=== PATIENT | male | born 1965 | race Caucasian/White ===

== ENCOUNTER 2021-03-16 05:04 | Day surgery (SDC) | payer BC ==
[2021-03-15 10:11] VITALS: BMI 24.5
[2021-03-16 10:19] LABS: INR 1.11 (0.83-1.09); PROTHROMBIN TIME (PATIENT) 12.4 SEC (9.7-13.0)
[2021-03-16 11:14] LABS: BASO % 0.6 % (0-2.0); EOS % 1.6 % (0-4.5); HEMATOCRIT 36.7 % (35.4-49); HEMOGLOBIN 12.5 GM/dL (11.7-16.9); LYMPH % 11.5 % (8-40); MCH 31.7 pg (25.7-33.7); MCHC 34.2 g/dl (32.0-35.9); MEAN CELL VOLUME 92.8 fl (80-96); MEAN PLT VOLUME 7.5 fl (7.5-11.1); MONO % 8.6 % (3.8-10.2); NEUT % 77.7 % (42.8-82.8); PLATELET COUNT 261 10^3/uL (134-434); RBC 3.95 M/mm3 (4.00-5.60); RDW 15.8 % (11.9-15.9); WHITE BLOOD COUNT 5.7 K/mm3 (4.0-10.0)
[2021-03-16 15:18] VITALS: BP 128/78; PULSE 78; TEMP 97
== END 2021-03-16 14:25 | disposition home or self-care (01) ==
LOC: JRADIR 05:04
PROVIDERS: ATTEND Internal Medicine Hematology & Oncology
PROC: 07DH3ZX Extraction of Right Inguinal Lymphatic, Percutaneous Approach, Diagnostic (ICD-10-PCS; principal; 2021-03-16)
DX: R59.0 Localized enlarged lymph nodes (principal)
CPT/HCPCS: 10005; 36415; 38505; 76942-TC; 85025; 85610; 88305-TC

== ENCOUNTER 2021-04-08 17:28 | Inpatient (IN) | payer BC ==
[2021-04-08 17:41] VITALS: BMI 23.6
[2021-04-08 20:59] LABS: BASO % 0.3 % (0-2.0); EOS % 0.5 % (0-4.5); HEMOGLOBIN 11.4 GM/dL (11.7-16.9); LYMPH % 12.8 % (8-40); MCH 30.4 pg (25.7-33.7); MCHC 33.5 g/dl (32.0-35.9); MEAN CELL VOLUME 90.7 fl (80-96); MONO % 8.6 % (3.8-10.2); NEUT % 77.8 % (42.8-82.8); PLATELET COUNT 327 10^3/uL (134-434); RBC 3.75 M/mm3 (4.00-5.60); RDW 15.2 % (11.9-15.9); WHITE BLOOD COUNT 5.9 K/mm3 (4.0-10.0)
[2021-04-09 03:04] LABS: CALCIUM 8.4 mg/dL (8.5-10.1)
[2021-04-09 03:05] LABS: BLOOD UREA NITROGEN 9.3 mg/dL (7-18)
[2021-04-09 03:07] LABS: CREATININE 0.9 mg/dL (0.55-1.3)
[2021-04-09 03:09] LABS: BILIRUBIN,TOTAL 0.3 mg/dL (0.2-1)
[2021-04-09] MEDS ORDERED: KCL 10 MEQ IVPB 10 MEQ/100 ML INFUS.BAG IVPB ONE ×2 (03:52→07:38)
[2021-04-09] MEDS: KCL 10 MEQ IVPB 10 MEQ/100 ML INFUS.BAG IVPB SCH ×3 (04:22→08:24)
[2021-04-09 06:43] LABS: PH,URINE 6.5 (5.0-8.0); URINE APPEARANCE CLEAR; URINE BILIRUBIN NEGATIVE (NEGATIVE); URINE COLOR YELLOW; URINE GLUCOSE (UA) NEGATIVE (NEGATIVE); URINE KETONE 1+ (NEGATIVE); URINE LEUK ESTERASE NEGATIVE (NEGATIVE); URINE NITRITE NEGATIVE (NEGATIVE); URINE PROTEIN NEGATIVE (NEGATIVE); URINE UROBILINOGEN 0.2 mg/dL (0.2-1.0)
[2021-04-09 09:05] LABS: BASO % 0.4 % (0-2.0); EOS % 0.4 % (0-4.5); HEMATOCRIT 36.3 % (35.4-49); HEMOGLOBIN 12.1 GM/dL (11.7-16.9); LYMPH % 10.6 % (8-40); MCH 30.3 pg (25.7-33.7); MCHC 33.4 g/dl (32.0-35.9); MEAN CELL VOLUME 90.9 fl (80-96); MEAN PLT VOLUME 7.1 fl (7.5-11.1); MONO % 7.1 % (3.8-10.2); NEUT % 81.5 % (42.8-82.8); PLATELET COUNT 310 10^3/uL (134-434); RDW 15.5 % (11.9-15.9); WHITE BLOOD COUNT 4.6 K/mm3 (4.0-10.0)
[2021-04-09 09:28] LABS: PHOSPHOROUS 3.3 mg/dL (2.5-4.9)
[2021-04-09] MEDS: ENOXAPARIN NA (PORCINE) 40 MG/0.4 ML DISP.SYRIN SQ SCH (12:23)
[2021-04-09] MEDS: D5-LR+20 MEQ KCL - 20 MEQ/1,000 ML INFUS.BAG IV SCH ×2 (12:54→23:44)
[2021-04-09] MEDS: POLYETHYLENE GLYCOL (HEALTHYLAX) 3350 17 GM PACKET PO SCH (21:21)
[2021-04-10 09:21] LABS: BASO % 0.5 % (0-2.0); EOS % 2.6 % (0-4.5); HEMATOCRIT 36.7 % (35.4-49); HEMOGLOBIN 12.6 GM/dL (11.7-16.9); LYMPH % 15.1 % (8-40); MCH 31.3 pg (25.7-33.7); MCHC 34.5 g/dl (32.0-35.9); MEAN CELL VOLUME 90.7 fl (80-96); MEAN PLT VOLUME 7.2 fl (7.5-11.1); MONO % 10.4 % (3.8-10.2); NEUT % 71.4 % (42.8-82.8); PLATELET COUNT 300 10^3/uL (134-434); RBC 4.04 M/mm3 (4.00-5.60); RDW 15.3 % (11.9-15.9); WHITE BLOOD COUNT 3.2 K/mm3 (4.0-10.0)
[2021-04-10 09:55] LABS: ALBUMIN 2.8 g/dl (3.4-5.0); PHOSPHOROUS 3.5 mg/dL (2.5-4.9)
[2021-04-10 09:56] LABS: BILIRUBIN,TOTAL 0.3 mg/dL (0.2-1); BLOOD UREA NITROGEN 6.9 mg/dL (7-18); CALCIUM 8.1 mg/dL (8.5-10.1); TOT PROT 6.6 g/dl (6.4-8.2)
[2021-04-10 09:57] LABS: CREATININE 0.8 mg/dL (0.55-1.3)
[2021-04-10] MEDS: LISINOPRIL 20 MG TABLET PO SCH (10:46)
[2021-04-10] MEDS: amLODIPine BESYLATE 10 MG TABLET (FP) PO SCH (10:46)
[2021-04-10] MEDS: ENOXAPARIN NA (PORCINE) 40 MG/0.4 ML DISP.SYRIN SQ SCH (10:47)
[2021-04-10] MEDS: POLYETHYLENE GLYCOL (HEALTHYLAX) 3350 17 GM PACKET PO SCH ×2 (10:47→22:23)
[2021-04-10] MEDS: D5-LR+20 MEQ KCL - 20 MEQ/1,000 ML INFUS.BAG IV SCH ×2 (10:47→17:14)
[2021-04-11] MEDS ORDERED: SIMETHICONE 80 MG TAB.CHEW (FP) PO ONE (01:03)
[2021-04-11] MEDS: D5-LR+20 MEQ KCL - 20 MEQ/1,000 ML INFUS.BAG IV SCH ×2 (04:09→13:18)
[2021-04-11] MEDS: amLODIPine BESYLATE 10 MG TABLET (FP) PO SCH (10:48)
[2021-04-11] MEDS: POLYETHYLENE GLYCOL (HEALTHYLAX) 3350 17 GM PACKET PO SCH ×2 (10:48→22:03)
[2021-04-11] MEDS: ENOXAPARIN NA (PORCINE) 40 MG/0.4 ML DISP.SYRIN SQ SCH (10:48)
[2021-04-11] MEDS: LISINOPRIL 20 MG TABLET PO SCH (10:48)
[2021-04-12] MEDS: D5-LR+20 MEQ KCL - 20 MEQ/1,000 ML INFUS.BAG IV SCH ×2 (00:36→16:49)
[2021-04-12 08:50] LABS: BASO % 0.5 % (0-2.0); EOS % 1.7 % (0-4.5); HEMATOCRIT 40.9 % (35.4-49); HEMOGLOBIN 13.3 GM/dL (11.7-16.9); LYMPH % 15.6 % (8-40); MCH 30.1 pg (25.7-33.7); MCHC 32.7 g/dl (32.0-35.9); MEAN CELL VOLUME 92.2 fl (80-96); MEAN PLT VOLUME 7.5 fl (7.5-11.1); MONO % 7.2 % (3.8-10.2); PLATELET COUNT 340 10^3/uL (134-434); RBC 4.43 M/mm3 (4.00-5.60); RDW 15.7 % (11.9-15.9); WHITE BLOOD COUNT 4.4 K/mm3 (4.0-10.0)
[2021-04-12] MEDS: LISINOPRIL 20 MG TABLET PO SCH (09:06)
[2021-04-12] MEDS: ENOXAPARIN NA (PORCINE) 40 MG/0.4 ML DISP.SYRIN SQ SCH (09:06)
[2021-04-12] MEDS: POLYETHYLENE GLYCOL (HEALTHYLAX) 3350 17 GM PACKET PO SCH (09:06)
[2021-04-12] MEDS: amLODIPine BESYLATE 10 MG TABLET (FP) PO SCH (09:06)
[2021-04-12 09:20] LABS: CALCIUM 8.6 mg/dL (8.5-10.1)
[2021-04-12 09:21] LABS: BLOOD UREA NITROGEN 7.2 mg/dL (7-18)
[2021-04-12 09:24] LABS: CREATININE 0.8 mg/dL (0.55-1.3)
[2021-04-12 14:25] VITALS: BP 132/74; PULSE 76; TEMP 98.7
[2021-04-12] MEDS ORDERED: FOLIC ACID 1 MG TABLET (FP) PO SCH (15:30)
== END 2021-04-12 18:13 | disposition home or self-care (01) | DRG 389 ==
LOC: SUPCPDRO 17:28 → JER 17:28 → JERBED 22:52 → J7W 04-09 08:42
PROVIDERS: ADMIT Internal Medicine; ATTEND Internal Medicine
DX: K56.600 Partial intestinal obstruction, unspecified as to cause (principal); C85.90 Non-Hodgkin lymphoma, unspecified, unspecified site; K21.9 Gastro-esophageal reflux disease without esophagitis; M06.9 Rheumatoid arthritis, unspecified; D64.9 Anemia, unspecified; E87.6 Hypokalemia; K56.7 Ileus, unspecified
CPT/HCPCS: 36415; 74019-TC-FY; 74021-TC-FY; 74177-TC; 80048; 80053; 81003; 82728; 83540; 83550; 83735; 84100; 85025; 85045; 86850; 86900; 86901; 87045; 87046; 87177; 87205; 87209; 87328; 87329; 93005; 93010; 99285-25; C9803; Q9967; U0003; U0005

== ENCOUNTER 2021-04-26 07:56 | Day surgery (SDC) | payer BC ==
[2021-04-26] MEDS ORDERED: BLEOMYCIN SULFATE 15 UNIT VIAL ID ONE (10:00)
[2021-04-26 12:05] LABS: BASO % 0.5 % (0-2.0); EOS % 1.1 % (0-4.5); HEMATOCRIT 38.9 % (35.4-49); HEMOGLOBIN 12.8 GM/dL (11.7-16.9); MCH 29.9 pg (25.7-33.7); MCHC 32.8 g/dl (32.0-35.9); MEAN CELL VOLUME 91.3 fl (80-96); MEAN PLT VOLUME 6.9 fl (7.5-11.1); MONO % 10.3 % (3.8-10.2); NEUT % 72.1 % (42.8-82.8); PLATELET COUNT 310 10^3/uL (134-434); RBC 4.26 M/mm3 (4.00-5.60); RDW 15.9 % (11.9-15.9); WHITE BLOOD COUNT 4.9 K/mm3 (4.0-10.0)
[2021-04-26 12:25] LABS: CALCIUM 8.7 mg/dL (8.5-10.1); MAGNESIUM 2.3 mg/dL (1.8-2.4)
[2021-04-26 12:26] LABS: ALBUMIN 3.4 g/dl (3.4-5.0); BLOOD UREA NITROGEN 12.7 mg/dL (7-18)
[2021-04-26 12:28] LABS: BILIRUBIN,DIRECT 0.1 mg/dL (0.0-0.2); CREATININE 0.7 mg/dL (0.55-1.3); URIC ACID 3.8 mg/dL (2.6-7.2)
[2021-04-26 12:31] LABS: BILIRUBIN,TOTAL 0.2 mg/dL (0.2-1)
[2021-04-26 18:10] VITALS: BP 113/65; PULSE 76; TEMP 98.5
== END 2021-04-26 14:30 | disposition home or self-care (01) ==
LOC: JONCCHEMO 07:56
PROVIDERS: ATTEND Internal Medicine Hematology & Oncology
DX: Z51.11 Encounter for antineoplastic chemotherapy (principal); C81.90 Hodgkin lymphoma, unspecified, unspecified site
CPT/HCPCS: 36415; 80048; 80076; 83615; 83735; 84550; 85025; 96402; J9040

== ENCOUNTER 2021-04-27 04:42 | Day surgery (SDC) | payer BC ==
[2021-04-23 09:45] VITALS: BMI 22.6
[2021-04-27] MEDS ORDERED: MIDAZOLAM HCL 2 MG/2 ML SINGLE DOSE VIAL ONE (09:25)
[2021-04-27] MEDS ORDERED: MIDAZOLAM HCL 2 MG/2 ML SINGLE DOSE VIAL IVPUSH ONE ×2 (10:35→11:00)
[2021-04-27 14:59] VITALS: BP 106/69
[2021-04-27 15:02] VITALS: PULSE 63; TEMP 97.3
== END 2021-04-27 15:15 | disposition home or self-care (01) ==
LOC: JRADIR 04:42
PROVIDERS: ATTEND Internal Medicine Hematology & Oncology
PROC: 02HV33Z Insertion of Infusion Device into Superior Vena Cava, Percutaneous Approach (ICD-10-PCS; principal; 2021-04-27)
PROC: B518YZA Fluoroscopy of Superior Vena Cava using Other Contrast, Guidance (ICD-10-PCS; 2021-04-27)
DX: C81.90 Hodgkin lymphoma, unspecified, unspecified site (principal)
CPT/HCPCS: 36561; C1788

== ENCOUNTER 2021-04-28 08:05 | Day surgery (SDC) | payer BC ==
[2021-04-28] MEDS ORDERED: SODIUM CHLORIDE 250 ML IV ONE (10:00)
[2021-04-28] MEDS ORDERED: FOSAPREPITANT DIMEGLUMINE 150 MG in SODIUM CHLORIDE 145 ML IVPB ONE (10:30)
[2021-04-28] MEDS ORDERED: diphenhydrAMINE HCL 25 MG CAPSULE (FP) PO ONE (10:30)
[2021-04-28] MEDS ORDERED: ACETAMINOPHEN 325 MG TABLET (FP) PO ONE (10:30)
[2021-04-28] MEDS ORDERED: DEXAMETHASONE SODIUM PHOSPHATE 10 MG in SODIUM CHLORIDE 50 ML IVPB ONE (10:30)
[2021-04-28] MEDS ORDERED: PALONOSETRON HCL 0.25 MG/5 ML VIAL IVPUSH ONE (10:30)
[2021-04-28] MEDS ORDERED: DOXOrubicin HCL 50 MG/25 ML VIAL IV ONE (11:00)
[2021-04-28] MEDS ORDERED: BLEOMYCIN SULFATE IVPB ONE (11:15)
[2021-04-28] MEDS ORDERED: SODIUM CHLORIDE IVPB ONE ×2 (11:15→11:30)
[2021-04-28] MEDS ORDERED: VINBLASTINE SULFATE IVPB ONE (11:30)
[2021-04-28] MEDS ORDERED: DACARBAZINE IVPB ONE (11:35)
[2021-04-28] MEDS ORDERED: WATER IVPB ONE (11:35)
[2021-04-28] MEDS ORDERED: DEXTROSE 5% IVPB ONE (11:35)
[2021-04-28 16:22] VITALS: TEMP 98.2
[2021-04-28 16:23] VITALS: BP 119/71; PULSE 79
== END 2021-04-28 15:30 | disposition home or self-care (01) ==
LOC: JONCCHEMO 08:05
PROVIDERS: ATTEND Internal Medicine Hematology & Oncology
PROC: 3E04305 Introduction of Other Antineoplastic into Central Vein, Percutaneous Approach (ICD-10-PCS; principal; 2021-04-28)
PROC: 3E0437Z Introduction of Electrolytic and Water Balance Substance into Central Vein, Percutaneous Approach (ICD-10-PCS; 2021-04-28)
DX: Z51.11 Encounter for antineoplastic chemotherapy (principal); C81.90 Hodgkin lymphoma, unspecified, unspecified site
CPT/HCPCS: 96361; 96367; 96375; 96411; 96413; J1453; J2469; J9040; J9130

== ENCOUNTER 2021-04-29 08:04 | Day surgery (SDC) | payer BC ==
[2021-04-29] MEDS ORDERED: PEGFILGRASTIM-CBQV (UDENYCA) 6 MG/0.6 ML SYRINGE SQ ONE (10:00)
[2021-04-29 17:33] VITALS: BP 142/75; PULSE 70; TEMP 97.6
== END 2021-04-29 16:00 | disposition home or self-care (01) ==
LOC: JONCCHEMO 08:04
PROVIDERS: ATTEND Internal Medicine Hematology & Oncology
PROC: 3E013GC Introduction of Other Therapeutic Substance into Subcutaneous Tissue, Percutaneous Approach (ICD-10-PCS; principal; 2021-04-29)
DX: C81.90 Hodgkin lymphoma, unspecified, unspecified site (principal)
CPT/HCPCS: 96372; Q5111

== ENCOUNTER 2021-05-11 06:39 | Day surgery (SDC) | payer BC ==
[2021-05-11] MEDS ORDERED: ACETAMINOPHEN 325 MG TABLET (FP) PO ONE (09:30)
[2021-05-11] MEDS ORDERED: SODIUM CHLORIDE 250 ML IV ONE (09:30)
[2021-05-11] MEDS ORDERED: diphenhydrAMINE HCL 25 MG CAPSULE (FP) PO ONE (09:30)
[2021-05-11 09:36] LABS: HEMOGLOBIN 11.7 GM/dL (11.7-16.9); MCH 30.6 pg (25.7-33.7); MCHC 34.4 g/dl (32.0-35.9); MEAN PLT VOLUME 7.5 fl (7.5-11.1); PLATELET COUNT 119 10^3/uL (134-434); RBC 3.83 M/mm3 (4.00-5.60); RDW 15.4 % (11.9-15.9); WHITE BLOOD COUNT 12.1 K/mm3 (4.0-10.0)
[2021-05-11 09:59] LABS: ALBUMIN 3.1 g/dl (3.4-5.0); BLOOD UREA NITROGEN 11.8 mg/dL (7-18); CALCIUM 7.8 mg/dL (8.5-10.1); MAGNESIUM 2.3 mg/dL (1.8-2.4)
[2021-05-11] MEDS ORDERED: FOSAPREPITANT DIMEGLUMINE 150 MG in SODIUM CHLORIDE 145 ML IVPB ONE (10:00)
[2021-05-11] MEDS ORDERED: DEXAMETHASONE SODIUM PHOSPHATE 10 MG in SODIUM CHLORIDE 50 ML IVPB ONE (10:00)
[2021-05-11] MEDS ORDERED: PALONOSETRON HCL 0.25 MG/5 ML VIAL IVPUSH ONE (10:00)
[2021-05-11 10:02] LABS: BILIRUBIN,DIRECT 0.1 mg/dL (0.0-0.2); CREATININE 0.8 mg/dL (0.55-1.3)
[2021-05-11 10:03] LABS: BILIRUBIN,TOTAL 0.2 mg/dL (0.2-1); TOT PROT 7.1 g/dl (6.4-8.2)
[2021-05-11] MEDS ORDERED: DOXOrubicin HCL 50 MG/25 ML VIAL IV ONE (10:30)
[2021-05-11] MEDS ORDERED: BLEOMYCIN SULFATE 17 UNIT in SODIUM CHLORIDE 50 ML IVPB ONE (10:45)
[2021-05-11] MEDS ORDERED: SODIUM CHLORIDE IVPB ONE (11:00)
[2021-05-11] MEDS ORDERED: VINBLASTINE SULFATE IVPB ONE (11:00)
[2021-05-11] MEDS ORDERED: WATER IVPB ONE (11:15)
[2021-05-11] MEDS ORDERED: DACARBAZINE IVPB ONE (11:15)
[2021-05-11] MEDS ORDERED: DEXTROSE 5% IVPB ONE (11:15)
[2021-05-11 11:43] LABS: ANISOCYTOSIS 0; HELMET CELLS 0; HOWELL-JOLLY BODIES 0; MACROCYTOSIS 0; OVALOCYTE 0; PLATELET ESTIMATE DECREASED; ROULEAU 0; SICKELED CELLS 0; TARGET CELLS 0; TEAR DROP CELLS 0; TOXIC GRANULATION 0
[2021-05-11 12:12] LABS: PH,URINE 6.5 (5.0-8.0); URINE APPEARANCE CLEAR; URINE BILIRUBIN NEGATIVE (NEGATIVE); URINE COLOR YELLOW; URINE GLUCOSE (UA) NEGATIVE (NEGATIVE); URINE KETONE NEGATIVE (NEGATIVE); URINE LEUK ESTERASE NEGATIVE (NEGATIVE); URINE NITRITE NEGATIVE (NEGATIVE); URINE PROTEIN TRACE (NEGATIVE)
[2021-05-11 17:08] VITALS: TEMP 98.9
[2021-05-11 17:29] VITALS: BP 123/68; PULSE 91
[2021-05-13 08:06] LABS: BETA-2-MICROGLOBULIN 3.4 mg/L (0.6-2.4)
== END 2021-05-11 16:05 | disposition home or self-care (01) ==
LOC: JONCCHEMO 06:39
PROVIDERS: ATTEND Internal Medicine Hematology & Oncology
DX: Z51.11 Encounter for antineoplastic chemotherapy (principal); C81.90 Hodgkin lymphoma, unspecified, unspecified site
CPT/HCPCS: 36415; 80048; 80076; 81003; 82232; 82784; 83615; 83735; 85025; 96361; 96367; 96375; 96411; 96413; J1453; J2469; J9040; J9130

== ENCOUNTER 2021-05-12 08:50 | Day surgery (SDC) | payer BC ==
[2021-05-12] MEDS ORDERED: DEXTROSE 5%-NORMAL SALINE 1,000 ML IV ONE (10:00)
[2021-05-12] MEDS ORDERED: PEGFILGRASTIM-CBQV (UDENYCA) 6 MG/0.6 ML SYRINGE SQ ONE (10:00)
[2021-05-12] MEDS ORDERED: ONDANSETRON INJECTION 8 MG in SODIUM CHLORIDE 50 ML IVPB ONE (10:00)
[2021-05-12] MEDS ORDERED: PORTA CATH FLUSH 10 ML IVPUSH ONE ×2 (17:21→18:20)
[2021-05-12 17:22] VITALS: TEMP 98.5
[2021-05-12 18:20] VITALS: BP 125/72; PULSE 80
== END 2021-05-12 18:22 | disposition home or self-care (01) ==
LOC: JONCCHEMO 08:50
PROVIDERS: ATTEND Internal Medicine Hematology & Oncology
PROC: 3E043GC Introduction of Other Therapeutic Substance into Central Vein, Percutaneous Approach (ICD-10-PCS; principal; 2021-05-12)
PROC: 3E043GC Introduction of Other Therapeutic Substance into Central Vein, Percutaneous Approach (ICD-10-PCS; 2021-05-12)
DX: C81.90 Hodgkin lymphoma, unspecified, unspecified site (principal); Z76.89 Persons encountering health services in other specified circumstances
CPT/HCPCS: 96361; 96365; 96372; J2405; Q5111

== ENCOUNTER 2021-05-25 07:20 | Day surgery (SDC) | payer BC ==
[2021-05-25] MEDS ORDERED: SODIUM CHLORIDE 250 ML IV ONE (09:00)
[2021-05-25] MEDS ORDERED: ACETAMINOPHEN 325 MG TABLET (FP) PO ONE (10:00)
[2021-05-25] MEDS ORDERED: diphenhydrAMINE HCL 25 MG CAPSULE (FP) PO ONE (10:00)
[2021-05-25] MEDS ORDERED: DEXAMETHASONE SODIUM PHOSPHATE 8 MG in SODIUM CHLORIDE 50 ML IVPB ONE (10:00)
[2021-05-25] MEDS ORDERED: PALONOSETRON HCL 0.25 MG/5 ML VIAL IVPUSH ONE (10:00)
[2021-05-25] MEDS ORDERED: FOSAPREPITANT DIMEGLUMINE 150 MG in SODIUM CHLORIDE 145 ML IVPB ONE (10:00)
[2021-05-25 10:04] LABS: HEMATOCRIT 31.3 % (35.4-49); HEMOGLOBIN 10.8 GM/dL (11.7-16.9); MCH 30.7 pg (25.7-33.7); MCHC 34.6 g/dl (32.0-35.9); MEAN CELL VOLUME 88.8 fl (80-96); MEAN PLT VOLUME 7.1 fl (7.5-11.1); PLATELET COUNT 221 10^3/uL (134-434); RBC 3.53 M/mm3 (4.00-5.60); RDW 15.9 % (11.9-15.9); WHITE BLOOD COUNT 6.5 K/mm3 (4.0-10.0)
[2021-05-25 10:26] LABS: CHLORIDE 107 mmol/L (98-107); SODIUM 141 mmol/L (136-145)
[2021-05-25 10:28] LABS: ANION GAP 4 MMOL/L (8-16); CALCIUM 8.6 mg/dL (8.5-10.1); CO2 31 mmol/L (21-32); MAGNESIUM 2.4 mg/dL (1.8-2.4)
[2021-05-25 10:29] LABS: ALBUMIN 3.1 g/dl (3.4-5.0); BLOOD UREA NITROGEN 8.8 mg/dL (7-18); GLUCOSE,RANDOM 89 mg/dL (74-106)
[2021-05-25] MEDS ORDERED: DOXOrubicin HCL 50 MG/25 ML VIAL IV ONE (10:30)
[2021-05-25 10:31] LABS: BILIRUBIN,DIRECT < 0.1 mg/dL (0.0-0.2); CREATININE 0.7 mg/dL (0.55-1.3); SGOT/AST 53 U/L (15-37); SGPT/ALT 36 U/L (13-61); URIC ACID 3.4 mg/dL (2.6-7.2)
[2021-05-25 10:32] LABS: PHOSPHOROUS 3.5 mg/dL (2.5-4.9)
[2021-05-25 10:33] LABS: TOT PROT 6.9 g/dl (6.4-8.2)
[2021-05-25 10:34] LABS: BILIRUBIN,TOTAL 0.2 mg/dL (0.2-1)
[2021-05-25 10:35] LABS: LDH 421 U/L (87-246)
[2021-05-25 10:37] LABS: ALK PHOS 93 U/L (45-117)
[2021-05-25] MEDS ORDERED: BLEOMYCIN SULFATE 17 UNIT in SODIUM CHLORIDE 50 ML IVPB ONE (10:45)
[2021-05-25] MEDS ORDERED: VINBLASTINE SULFATE IVPB ONE (11:00)
[2021-05-25] MEDS ORDERED: SODIUM CHLORIDE IVPB ONE (11:00)
[2021-05-25] MEDS ORDERED: DEXTROSE 5% IVPB ONE (11:15)
[2021-05-25] MEDS ORDERED: WATER IVPB ONE (11:15)
[2021-05-25] MEDS ORDERED: DACARBAZINE IVPB ONE (11:15)
[2021-05-25 11:18] LABS: ANISOCYTOSIS 1+; MACROCYTOSIS 1+; OVALOCYTE 1+
[2021-05-25 11:26] LABS: PLATELET ESTIMATE ADEQUATE
[2021-05-25 18:08] VITALS: BP 117/61; PULSE 78
[2021-05-25 18:09] VITALS: TEMP 98.2
== END 2021-05-25 15:30 | disposition home or self-care (01) ==
LOC: JONCCHEMO 07:20
PROVIDERS: ATTEND Internal Medicine Hematology & Oncology
DX: Z51.11 Encounter for antineoplastic chemotherapy (principal); C81.90 Hodgkin lymphoma, unspecified, unspecified site
CPT/HCPCS: 36415; 80048; 80076; 83615; 83735; 84100; 84550; 85025; 96367; 96375; 96411; 96413; J1453; J2469; J9040; J9130

== ENCOUNTER 2021-05-26 06:52 | Day surgery (SDC) | payer BC ==
[2021-05-26] MEDS ORDERED: PEGFILGRASTIM-CBQV (UDENYCA) 6 MG/0.6 ML SYRINGE SQ ONE (10:00)
[2021-05-26] MEDS ORDERED: DEXTROSE 5%-NORMAL SALINE 1,000 ML IV ONE (10:00)
[2021-05-26] MEDS ORDERED: ONDANSETRON INJECTION 8 MG in SODIUM CHLORIDE 50 ML IVPB ONE (10:00)
[2021-05-26 18:15] VITALS: TEMP 98.3
[2021-05-26 18:19] VITALS: BP 117/64; PULSE 76
== END 2021-05-26 18:00 | disposition home or self-care (01) ==
LOC: JONCCHEMO 06:52
PROVIDERS: ATTEND Internal Medicine Hematology & Oncology
PROC: 3E043GC Introduction of Other Therapeutic Substance into Central Vein, Percutaneous Approach (ICD-10-PCS; principal; 2021-05-26)
PROC: 3E0437Z Introduction of Electrolytic and Water Balance Substance into Central Vein, Percutaneous Approach (ICD-10-PCS; 2021-05-26)
PROC: 3E013GC Introduction of Other Therapeutic Substance into Subcutaneous Tissue, Percutaneous Approach (ICD-10-PCS; 2021-05-26)
DX: C81.90 Hodgkin lymphoma, unspecified, unspecified site (principal); Z76.89 Persons encountering health services in other specified circumstances
CPT/HCPCS: 96361; 96372; 96374; J2405; Q5111

== ENCOUNTER 2021-06-08 06:35 | Day surgery (SDC) | payer BC ==
[2021-06-08] MEDS ORDERED: SODIUM CHLORIDE 250 ML IV ONE (10:00)
[2021-06-08] MEDS ORDERED: DEXAMETHASONE SODIUM PHOSPHATE 8 MG in SODIUM CHLORIDE 50 ML IVPB ONE (10:30)
[2021-06-08] MEDS ORDERED: FOSAPREPITANT DIMEGLUMINE 150 MG in SODIUM CHLORIDE 145 ML IVPB ONE (10:30)
[2021-06-08] MEDS ORDERED: PALONOSETRON HCL 0.25 MG/5 ML VIAL IVPUSH ONE (10:30)
[2021-06-08] MEDS ORDERED: ACETAMINOPHEN 325 MG TABLET (FP) PO ONE (10:30)
[2021-06-08] MEDS ORDERED: diphenhydrAMINE HCL 25 MG CAPSULE (FP) PO ONE (10:30)
[2021-06-08 11:00] LABS: HEMATOCRIT 32.7 % (35.4-49); HEMOGLOBIN 11.1 GM/dL (11.7-16.9); MCH 30.1 pg (25.7-33.7); MCHC 33.9 g/dl (32.0-35.9); MEAN CELL VOLUME 88.8 fl (80-96); MEAN PLT VOLUME 7.4 fl (7.5-11.1); PLATELET COUNT 203 10^3/uL (134-434); RBC 3.68 M/mm3 (4.00-5.60); RDW 16.7 % (11.9-15.9); WHITE BLOOD COUNT 4.8 K/mm3 (4.0-10.0)
[2021-06-08] MEDS ORDERED: DOXOrubicin HCL 50 MG/25 ML VIAL IV ONE (11:00)
[2021-06-08 11:13] LABS: CALCIUM 8.5 mg/dL (8.5-10.1)
[2021-06-08 11:14] LABS: ALBUMIN 3.3 g/dl (3.4-5.0); BLOOD UREA NITROGEN 10.9 mg/dL (7-18); MAGNESIUM 2.6 mg/dL (1.8-2.4)
[2021-06-08] MEDS ORDERED: DEXAMETHASONE SODIUM PHOSPHATE 6 MG in SODIUM CHLORIDE 50 ML IVPB ONE (11:15)
[2021-06-08] MEDS ORDERED: BLEOMYCIN SULFATE 17 UNIT in SODIUM CHLORIDE 50 ML IVPB ONE (11:15)
[2021-06-08 11:16] LABS: BILIRUBIN,DIRECT 0.1 mg/dL (0.0-0.2); CREATININE 0.7 mg/dL (0.55-1.3); URIC ACID 3.2 mg/dL (2.6-7.2)
[2021-06-08 11:18] LABS: BILIRUBIN,TOTAL 0.2 mg/dL (0.2-1); TOT PROT 7.1 g/dl (6.4-8.2)
[2021-06-08] MEDS ORDERED: SODIUM CHLORIDE IVPB ONE (11:30)
[2021-06-08] MEDS ORDERED: VINBLASTINE SULFATE IVPB ONE (11:30)
[2021-06-08] MEDS ORDERED: WATER IVPB ONE (11:45)
[2021-06-08] MEDS ORDERED: DACARBAZINE IVPB ONE (11:45)
[2021-06-08] MEDS ORDERED: DEXTROSE 5% IVPB ONE (11:45)
[2021-06-08 12:20] LABS: ANISOCYTOSIS 0; HELMET CELLS 0; HOWELL-JOLLY BODIES 0; MACROCYTOSIS 0; OVALOCYTE 0; ROULEAU 0; SICKELED CELLS 0; TARGET CELLS 0; TEAR DROP CELLS 0; TOXIC GRANULATION 0
[2021-06-08 16:19] VITALS: TEMP 98.2
[2021-06-08 16:21] VITALS: BP 115/71; PULSE 81
== END 2021-06-08 16:21 | disposition home or self-care (01) ==
LOC: JONCCHEMO 06:35
PROVIDERS: ATTEND Internal Medicine Hematology & Oncology
DX: Z51.11 Encounter for antineoplastic chemotherapy (principal); C81.90 Hodgkin lymphoma, unspecified, unspecified site
CPT/HCPCS: 36415; 80048; 80076; 83615; 83735; 84550; 85025; 96361; 96367; 96375; 96411; 96413; J1453; J2469; J9040; J9130

== ENCOUNTER 2021-06-09 07:27 | Day surgery (SDC) | payer BC ==
[2021-06-09] MEDS ORDERED: DEXTROSE 5%-NORMAL SALINE 1,000 ML IV ONE (09:00)
[2021-06-09] MEDS ORDERED: PEGFILGRASTIM-CBQV (UDENYCA) 6 MG/0.6 ML SYRINGE SQ ONE (10:00)
[2021-06-09] MEDS ORDERED: ONDANSETRON INJECTION 8 MG in SODIUM CHLORIDE 50 ML IVPB ONE (10:00)
[2021-06-09 17:05] VITALS: TEMP 98.6
[2021-06-09] MEDS ORDERED: PORTA CATH FLUSH 10 ML IVPUSH ONE (17:16)
[2021-06-09 17:44] VITALS: BP 109/60; PULSE 76
== END 2021-06-09 17:50 | disposition home or self-care (01) ==
LOC: JONCCHEMO 07:27
PROVIDERS: ATTEND Internal Medicine Hematology & Oncology
PROC: 3E0437Z Introduction of Electrolytic and Water Balance Substance into Central Vein, Percutaneous Approach (ICD-10-PCS; principal; 2021-06-09)
DX: C81.90 Hodgkin lymphoma, unspecified, unspecified site (principal)
CPT/HCPCS: 96360; 96361; 96372; 96375; J2405; Q5111

== ENCOUNTER 2021-06-29 07:27 | Day surgery (SDC) | payer BC ==
[2021-06-29] MEDS ORDERED: SODIUM CHLORIDE 250 ML IV ONE (09:00)
[2021-06-29] MEDS ORDERED: PALONOSETRON HCL 0.25 MG/5 ML VIAL IVPUSH ONE (09:30)
[2021-06-29] MEDS ORDERED: ACETAMINOPHEN 325 MG TABLET (FP) PO ONE (09:30)
[2021-06-29] MEDS ORDERED: diphenhydrAMINE HCL 25 MG CAPSULE (FP) PO ONE (09:30)
[2021-06-29] MEDS ORDERED: DEXAMETHASONE SODIUM PHOSPHATE 6 MG in SODIUM CHLORIDE 50 ML IVPB ONE (09:30)
[2021-06-29] MEDS ORDERED: FOSAPREPITANT DIMEGLUMINE 150 MG in SODIUM CHLORIDE 145 ML IVPB ONE (09:30)
[2021-06-29] MEDS ORDERED: DOXOrubicin HCL 50 MG/25 ML VIAL IV ONE (10:00)
[2021-06-29] MEDS ORDERED: BLEOMYCIN SULFATE 17 UNIT in SODIUM CHLORIDE 50 ML IVPB ONE (10:15)
[2021-06-29] MEDS ORDERED: VINBLASTINE SULFATE IVPB ONE (10:30)
[2021-06-29] MEDS ORDERED: SODIUM CHLORIDE IVPB ONE (10:30)
[2021-06-29] MEDS ORDERED: DEXTROSE 5% IVPB ONE (11:00)
[2021-06-29] MEDS ORDERED: DACARBAZINE IVPB ONE (11:00)
[2021-06-29] MEDS ORDERED: WATER IVPB ONE (11:00)
[2021-06-29 11:06] LABS: BASO % 0.5 % (0-2.0); EOS % 0.9 % (0-4.5); HEMATOCRIT 32.9 % (35.4-49); HEMOGLOBIN 10.9 GM/dL (11.7-16.9); LYMPH % 10.8 % (8-40); MCH 29.6 pg (25.7-33.7); MEAN CELL VOLUME 89.7 fl (80-96); MEAN PLT VOLUME 6.6 fl (7.5-11.1); MONO % 12.3 % (3.8-10.2); NEUT % 75.5 % (42.8-82.8); PLATELET COUNT 372 10^3/uL (134-434); RBC 3.67 M/mm3 (4.00-5.60); RDW 18.7 % (11.9-15.9); WHITE BLOOD COUNT 5.1 K/mm3 (4.0-10.0)
[2021-06-29 11:23] LABS: CALCIUM 8.5 mg/dL (8.5-10.1); MAGNESIUM 2.3 mg/dL (1.8-2.4)
[2021-06-29 11:24] LABS: ALBUMIN 3.2 g/dl (3.4-5.0); BLOOD UREA NITROGEN 12.4 mg/dL (7-18)
[2021-06-29 11:26] LABS: CREATININE 0.7 mg/dL (0.55-1.3)
[2021-06-29 11:27] LABS: BILIRUBIN,DIRECT 0.1 mg/dL (0.0-0.2)
[2021-06-29 11:28] LABS: TOT PROT 7.4 g/dl (6.4-8.2)
[2021-06-29 11:29] LABS: BILIRUBIN,TOTAL 0.2 mg/dL (0.2-1)
[2021-06-29 11:34] LABS: URIC ACID 2.4 mg/dL (2.6-7.2)
[2021-06-29 17:10] VITALS: TEMP 98.6
[2021-06-29 17:22] VITALS: BP 106/65; PULSE 68
== END 2021-06-29 15:20 | disposition home or self-care (01) ==
LOC: JONCCHEMO 07:27
PROVIDERS: ATTEND Internal Medicine Hematology & Oncology
DX: Z51.11 Encounter for antineoplastic chemotherapy (principal); C81.90 Hodgkin lymphoma, unspecified, unspecified site
CPT/HCPCS: 36415; 80048; 80076; 83615; 83735; 84550; 85025; 96367; 96375; 96411; 96413; J1453; J2469; J9040; J9130

== ENCOUNTER 2021-06-30 08:23 | Day surgery (SDC) | payer BC ==
[2021-06-30] MEDS ORDERED: DEXTROSE 5%-NORMAL SALINE 1,000 ML IV ONE (09:00)
[2021-06-30] MEDS ORDERED: DEXAMETHASONE SODIUM PHOSPHATE 4 MG in SODIUM CHLORIDE 50 ML IVPB ONE (09:30)
[2021-06-30] MEDS ORDERED: PEGFILGRASTIM-CBQV (UDENYCA) 6 MG/0.6 ML SYRINGE SQ ONE (10:00)
[2021-06-30] MEDS ORDERED: PORTA CATH FLUSH 10 ML IVPUSH PRN (15:07)
[2021-06-30 15:08] VITALS: TEMP 97.7
[2021-06-30 17:42] VITALS: BP 124/70; PULSE 72
== END 2021-06-30 17:43 | disposition home or self-care (01) ==
LOC: JONCCHEMO 08:23
PROVIDERS: ATTEND Internal Medicine Hematology & Oncology
PROC: 3E043GC Introduction of Other Therapeutic Substance into Central Vein, Percutaneous Approach (ICD-10-PCS; principal; 2021-06-30)
DX: C81.90 Hodgkin lymphoma, unspecified, unspecified site (principal); Z76.89 Persons encountering health services in other specified circumstances
CPT/HCPCS: 96361; 96365; 96372; Q5111

== ENCOUNTER 2021-07-13 06:29 | Day surgery (SDC) | payer BC ==
[2021-07-13] MEDS ORDERED: SODIUM CHLORIDE 250 ML IV ONE (09:00)
[2021-07-13] MEDS ORDERED: diphenhydrAMINE HCL 25 MG CAPSULE (FP) PO ONE (09:30)
[2021-07-13] MEDS ORDERED: FOSAPREPITANT DIMEGLUMINE 150 MG in SODIUM CHLORIDE 145 ML IVPB ONE (09:30)
[2021-07-13] MEDS ORDERED: ACETAMINOPHEN 325 MG TABLET (FP) PO ONE (09:30)
[2021-07-13] MEDS ORDERED: PALONOSETRON HCL 0.25 MG/5 ML VIAL IVPUSH ONE (09:30)
[2021-07-13] MEDS ORDERED: DEXAMETHASONE SODIUM PHOSPHATE 6 MG in SODIUM CHLORIDE 50 ML IVPB ONE (09:30)
[2021-07-13] MEDS ORDERED: DOXOrubicin HCL 50 MG/25 ML VIAL IV ONE (10:00)
[2021-07-13] MEDS ORDERED: BLEOMYCIN SULFATE 17 UNIT in SODIUM CHLORIDE 50 ML IVPB ONE (10:15)
[2021-07-13] MEDS ORDERED: VINBLASTINE SULFATE IVPB ONE (10:30)
[2021-07-13] MEDS ORDERED: SODIUM CHLORIDE IVPB ONE (10:30)
[2021-07-13] MEDS ORDERED: WATER IVPB ONE (10:35)
[2021-07-13] MEDS ORDERED: DEXTROSE 5% IVPB ONE (10:35)
[2021-07-13] MEDS ORDERED: DACARBAZINE IVPB ONE (10:35)
[2021-07-13 11:19] LABS: BASO % 0.4 % (0-2.0); HEMATOCRIT 33.1 % (35.4-49); MCH 29.8 pg (25.7-33.7); MCHC 33.3 g/dl (32.0-35.9); MEAN CELL VOLUME 89.6 fl (80-96); MEAN PLT VOLUME 7.1 fl (7.5-11.1); MONO % 6.5 % (3.8-10.2); NEUT % 85.1 % (42.8-82.8); PLATELET COUNT 183 10^3/uL (134-434); RDW 18.5 % (11.9-15.9); WHITE BLOOD COUNT 5.7 K/mm3 (4.0-10.0)
[2021-07-13 11:41] LABS: CALCIUM 8.6 mg/dL (8.5-10.1); MAGNESIUM 2.4 mg/dL (1.8-2.4)
[2021-07-13 11:42] LABS: ALBUMIN 3.3 g/dl (3.4-5.0)
[2021-07-13 11:43] LABS: URIC ACID 3.8 mg/dL (2.6-7.2)
[2021-07-13 11:44] LABS: BILIRUBIN,DIRECT 0.1 mg/dL (0.0-0.2); CREATININE 0.7 mg/dL (0.55-1.3)
[2021-07-13 11:45] LABS: TOT PROT 7.1 g/dl (6.4-8.2)
[2021-07-13 11:47] LABS: BILIRUBIN,TOTAL 0.2 mg/dL (0.2-1)
[2021-07-13 16:36] VITALS: BP 113/65; PULSE 67; TEMP 98.7
[2021-07-13] MEDS ORDERED: PORTA CATH FLUSH 10 ML IVPUSH PRN (16:36)
== END 2021-07-13 16:00 | disposition home or self-care (01) ==
LOC: JONCCHEMO 06:29
PROVIDERS: ATTEND Internal Medicine Hematology & Oncology
DX: Z51.11 Encounter for antineoplastic chemotherapy (principal); C81.90 Hodgkin lymphoma, unspecified, unspecified site
CPT/HCPCS: 36415; 80048; 80076; 83615; 83735; 84550; 85025; 96367; 96375; 96411; 96413; J1453; J2469; J9040; J9130

== ENCOUNTER 2021-07-14 06:43 | Day surgery (SDC) | payer BC ==
[2021-07-14] MEDS ORDERED: DEXTROSE 5%-NORMAL SALINE 1,000 ML IV ONE (09:00)
[2021-07-14] MEDS ORDERED: PEGFILGRASTIM-CBQV (UDENYCA) 6 MG/0.6 ML SYRINGE SQ ONE (10:00)
[2021-07-14] MEDS ORDERED: DEXAMETHASONE SODIUM PHOSPHATE 4 MG in SODIUM CHLORIDE 50 ML IVPB ONE (10:00)
[2021-07-14 16:36] VITALS: PULSE 71
[2021-07-14] MEDS ORDERED: PORTA CATH FLUSH 10 ML IVPUSH PRN (16:36)
[2021-07-14 18:33] VITALS: TEMP 98
[2021-07-14 18:34] VITALS: BP 136/75
== END 2021-07-14 18:10 | disposition home or self-care (01) ==
LOC: JONCCHEMO 06:43
PROVIDERS: ATTEND Internal Medicine Hematology & Oncology
PROC: 3E043GC Introduction of Other Therapeutic Substance into Central Vein, Percutaneous Approach (ICD-10-PCS; principal; 2021-07-14)
PROC: 3E013GC Introduction of Other Therapeutic Substance into Subcutaneous Tissue, Percutaneous Approach (ICD-10-PCS; 2021-07-14)
DX: C81.90 Hodgkin lymphoma, unspecified, unspecified site (principal); Z76.89 Persons encountering health services in other specified circumstances
CPT/HCPCS: 96361; 96365; 96372; Q5111

== ENCOUNTER 2021-07-27 06:38 | Day surgery (SDC) | payer BC ==
[2021-07-27] MEDS ORDERED: SODIUM CHLORIDE 250 ML IV ONE (09:00)
[2021-07-27] MEDS ORDERED: DEXAMETHASONE SODIUM PHOSPHATE 6 MG in SODIUM CHLORIDE 50 ML IVPB ONE (10:00)
[2021-07-27] MEDS ORDERED: ACETAMINOPHEN 325 MG TABLET (FP) PO ONE (10:00)
[2021-07-27] MEDS ORDERED: diphenhydrAMINE HCL 25 MG CAPSULE (FP) PO ONE (10:00)
[2021-07-27] MEDS ORDERED: PALONOSETRON HCL 0.25 MG/5 ML VIAL IVPUSH ONE (10:00)
[2021-07-27] MEDS ORDERED: FOSAPREPITANT DIMEGLUMINE 150 MG in SODIUM CHLORIDE 145 ML IVPB ONE (10:00)
[2021-07-27] MEDS ORDERED: DOXOrubicin HCL 50 MG/25 ML VIAL IV ONE (10:30)
[2021-07-27] MEDS ORDERED: SODIUM CHLORIDE IVPB ONE (11:00)
[2021-07-27] MEDS ORDERED: VINBLASTINE SULFATE IVPB ONE (11:00)
[2021-07-27 11:27] LABS: BASO % 0.4 % (0-2.0); EOS % 0.8 % (0-4.5); HEMATOCRIT 31.3 % (35.4-49); HEMOGLOBIN 10.4 GM/dL (11.7-16.9); LYMPH % 8.7 % (8-40); MCH 29.9 pg (25.7-33.7); MCHC 33.4 g/dl (32.0-35.9); MEAN CELL VOLUME 89.5 fl (80-96); MEAN PLT VOLUME 7.5 fl (7.5-11.1); MONO % 7.1 % (3.8-10.2); PLATELET COUNT 194 10^3/uL (134-434); RDW 18.9 % (11.9-15.9)
[2021-07-27] MEDS ORDERED: DEXTROSE 5% IVPB ONE (11:30)
[2021-07-27] MEDS ORDERED: DACARBAZINE IVPB ONE (11:30)
[2021-07-27] MEDS ORDERED: WATER IVPB ONE (11:30)
[2021-07-27 12:12] LABS: ALBUMIN 3.6 g/dl (3.4-5.0); BLOOD UREA NITROGEN 11.1 mg/dL (7-18)
[2021-07-27 12:14] LABS: CALCIUM 8.2 mg/dL (8.5-10.1); MAGNESIUM 2.6 mg/dL (1.8-2.4)
[2021-07-27 12:15] LABS: BILIRUBIN,DIRECT 0.1 mg/dL (0.0-0.2); CREATININE 0.7 mg/dL (0.55-1.3); URIC ACID 3.2 mg/dL (2.6-7.2)
[2021-07-27 12:17] LABS: BILIRUBIN,TOTAL 0.3 mg/dL (0.2-1); TOT PROT 7.4 g/dl (6.4-8.2)
[2021-07-27 17:38] VITALS: BP 111/63; PULSE 67; TEMP 98
== END 2021-07-27 15:45 | disposition home or self-care (01) ==
LOC: JONCCHEMO 06:38
PROVIDERS: ATTEND Internal Medicine Hematology & Oncology
DX: Z51.11 Encounter for antineoplastic chemotherapy (principal); C81.90 Hodgkin lymphoma, unspecified, unspecified site
CPT/HCPCS: 36415; 80048; 80076; 83615; 83735; 84550; 85025; 96367; 96375; 96411; 96413; J1453; J2469; J9130

== ENCOUNTER 2021-07-28 08:24 | Day surgery (SDC) | payer BC ==
[2021-07-28] MEDS ORDERED: DEXTROSE 5%-NORMAL SALINE 1,000 ML IV ONE (10:45)
[2021-07-28] MEDS ORDERED: DEXAMETHASONE SODIUM PHOSPHATE 4 MG in SODIUM CHLORIDE 50 ML IVPB ONE (11:00)
[2021-07-28] MEDS ORDERED: PEGFILGRASTIM-CBQV (UDENYCA) 6 MG/0.6 ML SYRINGE SQ ONE (11:00)
[2021-07-28] MEDS ORDERED: ONDANSETRON 4 MG/2 ML VIAL IVPB ONE (15:56)
[2021-07-28 16:15] VITALS: PULSE 69; TEMP 98.1
[2021-07-28 18:49] VITALS: BP 147/76
== END 2021-07-28 17:30 | disposition home or self-care (01) ==
LOC: JONCCHEMO 08:24
PROVIDERS: ATTEND Internal Medicine Hematology & Oncology
PROC: 3E043GC Introduction of Other Therapeutic Substance into Central Vein, Percutaneous Approach (ICD-10-PCS; principal; 2021-07-28)
PROC: 3E013GC Introduction of Other Therapeutic Substance into Subcutaneous Tissue, Percutaneous Approach (ICD-10-PCS; 2021-07-28)
DX: C81.90 Hodgkin lymphoma, unspecified, unspecified site (principal); Z76.89 Persons encountering health services in other specified circumstances
CPT/HCPCS: 96361; 96365; 96368; 96372; 96375; Q5111

== ENCOUNTER 2021-08-05 16:42 | Inpatient (IN) | payer BC, OTHER ==
[2021-08-05] MEDS ORDERED: LACTATED RINGERS SOLUTION 1000 ML INFUS.BAG IV ONE (18:18)
[2021-08-05 19:13] LABS: INR 1.03 (0.83-1.09); PROTHROMBIN TIME (PATIENT) 11.8 SEC (9.7-13.0)
[2021-08-05 19:15] LABS: ACTIVATED PTT 30.1 SECONDS (25.2-36.5)
[2021-08-05] MEDS ORDERED: LIDOCAINE HCL 2% JELLY 10 ML CARTRIDGE ONE (23:34)
[2021-08-06 06:01] LABS: HEMOGLOBIN 9.7 GM/dL (11.7-16.9); MCH 29.6 pg (25.7-33.7); MCHC 33.3 g/dl (32.0-35.9); MEAN CELL VOLUME 88.9 fl (80-96); MEAN PLT VOLUME 7.6 fl (7.5-11.1); PLATELET COUNT 251 10^3/uL (134-434); RBC 3.26 M/mm3 (4.00-5.60); RDW 18.6 % (11.9-15.9); WHITE BLOOD COUNT 5.1 K/mm3 (4.0-10.0)
[2021-08-06 06:23] LABS: ALBUMIN 3.2 g/dl (3.4-5.0); BLOOD UREA NITROGEN 6.9 mg/dL (7-18); CALCIUM 8.1 mg/dL (8.5-10.1); MAGNESIUM 2.3 mg/dL (1.8-2.4)
[2021-08-06 06:26] LABS: CREATININE 0.5 mg/dL (0.55-1.3); PHOSPHOROUS 3.8 mg/dL (2.5-4.9)
[2021-08-06 06:28] LABS: BILIRUBIN,TOTAL 0.2 mg/dL (0.2-1); TOT PROT 6.4 g/dl (6.4-8.2)
[2021-08-06] MEDS ORDERED: KCL 10 MEQ IVPB 10 MEQ/100 ML INFUS.BAG IVPB ONE ×3 (07:44→09:24)
[2021-08-06] MEDS: KCL 10 MEQ IVPB 10 MEQ/100 ML INFUS.BAG IVPB SCH ×6 (07:54→20:34)
[2021-08-06] MEDS: SODIUM CHLORIDE 1,000 ML IV SCH ×3 (08:00→21:49)
[2021-08-06] MEDS ORDERED: ENOXAPARIN NA (PORCINE) 40 MG/0.4 ML DISP.SYRIN SQ ONE (09:24)
[2021-08-06] MEDS: ENOXAPARIN NA (PORCINE) 40 MG/0.4 ML DISP.SYRIN SQ SCH (10:08)
[2021-08-06 10:27] LABS: ANISOCYTOSIS 1+; MACROCYTOSIS 0
[2021-08-06 14:37] VITALS: BMI 20.9
[2021-08-06] MEDS ORDERED: METHOTREXATE 2.5 MG TABLET PO SCH (16:45)
[2021-08-06] MEDS: LISINOPRIL 20 MG TABLET PO SCH (18:40)
[2021-08-06] MEDS: FOLIC ACID 1 MG TABLET (FP) PO SCH (18:40)
[2021-08-06] MEDS: ALLOPURINOL 300 MG TABLET (FP) PO SCH (18:40)
[2021-08-06] MEDS: amLODIPine BESYLATE 10 MG TABLET (FP) PO SCH (18:40)
[2021-08-07] MEDS: SODIUM CHLORIDE 1,000 ML IV SCH (09:05)
[2021-08-07] MEDS: ENOXAPARIN NA (PORCINE) 40 MG/0.4 ML DISP.SYRIN SQ SCH (09:06)
[2021-08-07] MEDS: LISINOPRIL 20 MG TABLET PO SCH (09:06)
[2021-08-07] MEDS: ALLOPURINOL 300 MG TABLET (FP) PO SCH (09:06)
[2021-08-07] MEDS: FOLIC ACID 1 MG TABLET (FP) PO SCH (09:06)
[2021-08-07] MEDS: amLODIPine BESYLATE 10 MG TABLET (FP) PO SCH (09:06)
[2021-08-07 09:52] LABS: HEMATOCRIT 33.8 % (35.4-49); HEMOGLOBIN 11.3 GM/dL (11.7-16.9); MCH 29.9 pg (25.7-33.7); MCHC 33.6 g/dl (32.0-35.9); MEAN CELL VOLUME 89.2 fl (80-96); MEAN PLT VOLUME 7.6 fl (7.5-11.1); PLATELET COUNT 196 10^3/uL (134-434); RBC 3.78 M/mm3 (4.00-5.60); RDW 18.9 % (11.9-15.9); WHITE BLOOD COUNT 4.4 K/mm3 (4.0-10.0)
[2021-08-07 10:22] LABS: CALCIUM 8.6 mg/dL (8.5-10.1)
[2021-08-07 10:23] LABS: ALBUMIN 3.1 g/dl (3.4-5.0); BLOOD UREA NITROGEN 5.2 mg/dL (7-18); MAGNESIUM 2.4 mg/dL (1.8-2.4)
[2021-08-07 10:25] LABS: CREATININE 0.7 mg/dL (0.55-1.3); PHOSPHOROUS 3.6 mg/dL (2.5-4.9)
[2021-08-07 10:26] LABS: BILIRUBIN,TOTAL 0.2 mg/dL (0.2-1)
[2021-08-07 10:27] LABS: TOT PROT 6.3 g/dl (6.4-8.2)
[2021-08-07 11:15] LABS: ANISOCYTOSIS 0; HELMET CELLS 0; HOWELL-JOLLY BODIES 0; MACROCYTOSIS 0; OVALOCYTE 0; ROULEAU 0; SICKELED CELLS 0; TARGET CELLS 0; TEAR DROP CELLS 0; TOXIC GRANULATION 0
[2021-08-07] MEDS ORDERED: ACETAMINOPHEN 500 MG TABLET (FP) PO PRN (19:24)
[2021-08-08] MEDS: SODIUM CHLORIDE 1,000 ML IV SCH (01:29)
[2021-08-08] MEDS: FOLIC ACID 1 MG TABLET (FP) PO SCH (09:48)
[2021-08-08] MEDS: amLODIPine BESYLATE 10 MG TABLET (FP) PO SCH (09:48)
[2021-08-08] MEDS: ALLOPURINOL 300 MG TABLET (FP) PO SCH (09:48)
[2021-08-08] MEDS: ENOXAPARIN NA (PORCINE) 40 MG/0.4 ML DISP.SYRIN SQ SCH (09:48)
[2021-08-08] MEDS: LISINOPRIL 20 MG TABLET PO SCH (09:54)
[2021-08-08 15:37] VITALS: BP 134/72; PULSE 81; TEMP 99.4
[2021-08-10] MEDS ORDERED: METHOTREXATE 2.5 MG TABLET PO SCH (10:00)
== END 2021-08-08 17:30 | disposition home or self-care (01) | DRG 389 ==
LOC: JER 16:42 → JERBED 23:56 → J5S 08-06 12:07
PROVIDERS: ADMIT Hospitalist; ATTEND Internal Medicine
DX: K56.600 Partial intestinal obstruction, unspecified as to cause (principal); C85.90 Non-Hodgkin lymphoma, unspecified, unspecified site; I10 Essential (primary) hypertension; K21.9 Gastro-esophageal reflux disease without esophagitis; E87.5 Hyperkalemia; M10.9 Gout, unspecified; M06.9 Rheumatoid arthritis, unspecified
CPT/HCPCS: 36415; 74019-TC-FY; 74177-TC; 80053; 83735; 84100; 84132; 85025; 85610; 85730; 86850; 86900; 86901; 93005; 93010; 99285-25; C9803-CS; Q9967; U0003; U0005

== ENCOUNTER 2021-08-17 06:48 | Day surgery (SDC) | payer BC, OTHER ==
[2021-08-17] MEDS ORDERED: SODIUM CHLORIDE 250 ML IV ONE (09:00)
[2021-08-17] MEDS ORDERED: DEXAMETHASONE SODIUM PHOSPHATE 6 MG in SODIUM CHLORIDE 50 ML IVPB ONE (09:30)
[2021-08-17] MEDS ORDERED: diphenhydrAMINE HCL 25 MG CAPSULE (FP) PO ONE (09:30)
[2021-08-17] MEDS ORDERED: FOSAPREPITANT DIMEGLUMINE 150 MG in SODIUM CHLORIDE 145 ML IVPB ONE (09:30)
[2021-08-17] MEDS ORDERED: PALONOSETRON HCL 0.25 MG/5 ML VIAL IVPUSH ONE (09:30)
[2021-08-17] MEDS ORDERED: ACETAMINOPHEN 325 MG TABLET (FP) PO ONE (09:30)
[2021-08-17] MEDS ORDERED: DOXOrubicin HCL 50 MG/25 ML VIAL IV ONE (10:00)
[2021-08-17] MEDS ORDERED: VINBLASTINE SULFATE IVPB ONE (10:15)
[2021-08-17] MEDS ORDERED: SODIUM CHLORIDE IVPB ONE (10:15)
[2021-08-17] MEDS ORDERED: DACARBAZINE IVPB ONE (10:20)
[2021-08-17] MEDS ORDERED: WATER IVPB ONE (10:20)
[2021-08-17] MEDS ORDERED: DEXTROSE 5% IVPB ONE (10:20)
[2021-08-17 11:08] LABS: HEMATOCRIT 34.2 % (35.4-49); MCHC 32.1 g/dl (32.0-35.9); MEAN CELL VOLUME 90.3 fl (80-96); RBC 3.79 M/mm3 (4.00-5.60); WHITE BLOOD COUNT 4.3 K/mm3 (4.0-10.0)
[2021-08-17 11:09] LABS: BASO % 0.6 % (0-2.0); EOS % 1.6 % (0-4.5); LYMPH % 14.6 % (8-40); MONO % 12.2 % (3.8-10.2); PLATELET COUNT 327 10^3/uL (134-434); RDW 19.3 % (11.9-15.9)
[2021-08-17 11:32] LABS: BLOOD UREA NITROGEN 8.7 mg/dL (7-18); CALCIUM 8.7 mg/dL (8.5-10.1)
[2021-08-17 11:33] LABS: ALBUMIN 3.4 g/dl (3.4-5.0)
[2021-08-17 11:35] LABS: CREATININE 0.6 mg/dL (0.55-1.3); URIC ACID 2.3 mg/dL (2.6-7.2)
[2021-08-17 11:37] LABS: TOT PROT 7.1 g/dl (6.4-8.2)
[2021-08-17 12:06] LABS: BILIRUBIN,TOTAL 0.2 mg/dL (0.2-1)
[2021-08-17] MEDS ORDERED: PORTA CATH FLUSH 10 ML IVPUSH PRN (17:16)
[2021-08-17 17:17] VITALS: TEMP 97.6
[2021-08-17 17:34] VITALS: BP 120/64; PULSE 62
== END 2021-08-17 15:15 | disposition home or self-care (01) ==
LOC: JONCCHEMO 06:48
PROVIDERS: ATTEND Internal Medicine Hematology & Oncology
DX: Z51.11 Encounter for antineoplastic chemotherapy (principal); C81.90 Hodgkin lymphoma, unspecified, unspecified site
CPT/HCPCS: 36415; 80053; 83615; 84550; 85025; 96367; 96375; 96411; 96413; J1453; J2469; J9130

== ENCOUNTER 2021-08-18 06:40 | Day surgery (SDC) | payer BC ==
[2021-08-18] MEDS ORDERED: DEXTROSE 5%-NORMAL SALINE 1,000 ML IV ONE (09:00)
[2021-08-18] MEDS ORDERED: DEXAMETHASONE SODIUM PHOSPHATE 4 MG in SODIUM CHLORIDE 50 ML IVPB ONE (09:00)
[2021-08-18] MEDS ORDERED: PEGFILGRASTIM-CBQV (UDENYCA) 6 MG/0.6 ML SYRINGE SQ ONE (09:00)
[2021-08-18 16:38] VITALS: TEMP 97.6
[2021-08-18] MEDS ORDERED: PORTA CATH FLUSH 10 ML IVPUSH PRN (16:38)
[2021-08-18 17:04] VITALS: BP 125/65; PULSE 65
== END 2021-08-18 17:05 | disposition home or self-care (01) ==
LOC: JONCCHEMO 06:40
PROVIDERS: ATTEND Internal Medicine Hematology & Oncology
PROC: 3E013GC Introduction of Other Therapeutic Substance into Subcutaneous Tissue, Percutaneous Approach (ICD-10-PCS; principal; 2021-08-18)
PROC: 3E043GC Introduction of Other Therapeutic Substance into Central Vein, Percutaneous Approach (ICD-10-PCS; 2021-08-18)
PROC: 3E0437Z Introduction of Electrolytic and Water Balance Substance into Central Vein, Percutaneous Approach (ICD-10-PCS; 2021-08-18)
DX: C81.90 Hodgkin lymphoma, unspecified, unspecified site (principal); Z76.89 Persons encountering health services in other specified circumstances
CPT/HCPCS: 96361; 96372; 96374; Q5111

== ENCOUNTER 2023-04-20 08:51 | Day surgery (SDC) | payer OTHER ==
[2023-04-20] MEDS ORDERED: METHYLPREDNISOLONE NA SUCC 100 MG in SODIUM CHLORIDE 50 ML IVPB ONE (10:00)
[2023-04-20] MEDS ORDERED: ACETAMINOPHEN 500 MG TABLET (FP) PO ONE (10:00)
[2023-04-20] MEDS ORDERED: diphenhydrAMINE HCL 25 MG CAPSULE (FP) PO ONE (10:00)
[2023-04-20 17:26] VITALS: BP 153/82; PULSE 79; RESP 20; TEMP 98.4
== END 2023-04-20 17:15 | disposition home or self-care (01) ==
LOC: JINFUSION 08:51 → J7W 08:54 → JINFUSION 17:15
PROVIDERS: ATTEND Internal Medicine Rheumatology
DX: M06.9 Rheumatoid arthritis, unspecified (principal)
CPT/HCPCS: 96375; 96413; 96415; Q5115

== ENCOUNTER 2023-05-04 09:13 | Day surgery (SDC) | payer OTHER ==
[~2023-05-04 09:13] MED LIST: ACETAMINOPHEN 500 MG TABLET (FP) PO ONE; METHYLPREDNISOLONE NA SUCC 100 MG in SODIUM CHLORIDE 50 ML IVPB ONE; diphenhydrAMINE HCL 25 MG CAPSULE (FP) PO ONE
[2023-05-04] MEDS: ACETAMINOPHEN 500 MG TABLET (FP) PO ONE (10:09)
[2023-05-04] MEDS: diphenhydrAMINE HCL 25 MG CAPSULE (FP) PO ONE (10:09)
[2023-05-04] MEDS: METHYLPREDNISOLONE NA SUCC 100 MG in SODIUM CHLORIDE 50 ML IVPB ONE (10:18)
[2023-05-04 18:45] VITALS: BP 133/83; PULSE 88; RESP 18; TEMP 98.3
== END 2023-05-04 15:40 | disposition home or self-care (01) ==
LOC: JINFUSION 09:13 → J7W 09:15 → JINFUSION 15:40
PROVIDERS: ATTEND Internal Medicine Rheumatology
DX: M06.9 Rheumatoid arthritis, unspecified (principal); M35.9 Systemic involvement of connective tissue, unspecified; M34.9 Systemic sclerosis, unspecified; J84.9 Interstitial pulmonary disease, unspecified
CPT/HCPCS: 96367; 96413; 96415; Q5115

== ENCOUNTER 2023-10-31 09:18 | Day surgery (SDC) | payer OTHER ==
[2023-10-31] MEDS: diphenhydrAMINE HCL 25 MG CAPSULE (FP) PO ONE (10:17)
[2023-10-31] MEDS: METHYLPREDNISOLONE NA SUCC 100 MG in SODIUM CHLORIDE 50 ML IVPB ONE (10:17)
[2023-10-31] MEDS: ACETAMINOPHEN 500 MG TABLET (FP) PO ONE (10:17)
[2023-10-31 15:31] VITALS: BP 157/85; PULSE 75; RESP 20; TEMP 98.1
== END 2023-10-31 15:20 | disposition home or self-care (01) ==
LOC: JINFUSION 09:18 → J7W 09:18 → JINFUSION 15:20
PROVIDERS: ATTEND Internal Medicine Rheumatology
DX: M06.9 Rheumatoid arthritis, unspecified (principal); M35.9 Systemic involvement of connective tissue, unspecified; M34.9 Systemic sclerosis, unspecified; J84.9 Interstitial pulmonary disease, unspecified
CPT/HCPCS: 96413; 96415; Q5115

== ENCOUNTER 2023-11-14 09:08 | Day surgery (SDC) | payer OTHER ==
[2023-11-14] MEDS: METHYLPREDNISOLONE NA SUCC 100 MG in SODIUM CHLORIDE 50 ML IVPB ONE (10:03)
[2023-11-14] MEDS: diphenhydrAMINE HCL 25 MG CAPSULE (FP) PO ONE (10:03)
[2023-11-14] MEDS: ACETAMINOPHEN 500 MG TABLET (FP) PO ONE (10:03)
[2023-11-14 17:17] VITALS: BP 157/86; PULSE 71; RESP 20; TEMP 98.4
== END 2023-11-14 15:55 | disposition home or self-care (01) ==
LOC: JINFUSION 09:08 → J7W 09:09 → JINFUSION 15:55
PROVIDERS: ATTEND Internal Medicine Rheumatology
DX: M06.9 Rheumatoid arthritis, unspecified (principal); M34.9 Systemic sclerosis, unspecified; J84.9 Interstitial pulmonary disease, unspecified
CPT/HCPCS: 96413; 96415; Q5115

== ENCOUNTER 2024-06-12 09:17 | Day surgery (SDC) | payer OTHER ==
[2024-06-12] MEDS: ACETAMINOPHEN 500 MG TABLET (FP) PO ONE (10:32)
[2024-06-12] MEDS: diphenhydrAMINE HCL 25 MG CAPSULE (FP) PO ONE (10:33)
[2024-06-12] MEDS ORDERED: methylPREDNISolone NA SUCC 125 MG/2 ML VIAL ONE (10:46)
[2024-06-12] MEDS: METHYLPREDNISOLONE NA SUCC 100 MG in SODIUM CHLORIDE 50 ML IVPB ONE (10:57)
[2024-06-12 14:44] VITALS: RESP 20
[2024-06-12 14:54] VITALS: BP 147/78; PULSE 64; TEMP 98
== END 2024-06-12 16:00 | disposition home or self-care (01) ==
LOC: JINFUSION 09:17
PROVIDERS: ATTEND Internal Medicine Rheumatology
PROC: 3E04305 Introduction of Other Antineoplastic into Central Vein, Percutaneous Approach (ICD-10-PCS; principal; 2024-06-12)
PROC: 3E0437Z Introduction of Electrolytic and Water Balance Substance into Central Vein, Percutaneous Approach (ICD-10-PCS; 2024-06-12)
DX: M06.9 Rheumatoid arthritis, unspecified (principal)
CPT/HCPCS: 96367; 96413; 96415; Q5115

== ENCOUNTER 2024-06-26 09:34 | Day surgery (SDC) | payer OTHER ==
[2024-06-26] MEDS: diphenhydrAMINE HCL 25 MG CAPSULE (FP) PO ONE (10:11)
[2024-06-26] MEDS: ACETAMINOPHEN 500 MG TABLET (FP) PO ONE (10:11)
[2024-06-26] MEDS: METHYLPREDNISOLONE NA SUCC 100 MG in SODIUM CHLORIDE 50 ML IVPB ONE (10:12)
[2024-06-26 16:11] VITALS: RESP 18
[2024-06-26 16:30] VITALS: BP 134/72; PULSE 67
[2024-06-26 16:32] VITALS: TEMP 97.9
== END 2024-06-26 14:15 | disposition home or self-care (01) ==
LOC: JINFUSION 09:34 → J7W 09:34 → JINFUSION 14:15
PROVIDERS: ATTEND Internal Medicine Rheumatology
DX: M06.9 Rheumatoid arthritis, unspecified (principal); M34.9 Systemic sclerosis, unspecified; J84.9 Interstitial pulmonary disease, unspecified
CPT/HCPCS: 96375; 96413; 96415; Q5115

== ENCOUNTER → 2024-08-07 | Day surgery (SDC) | payer OTHER | END | disposition home or self-care (01) | LOC: JRADIR 09:56 | PROVIDERS: ATTEND Internal Medicine Hematology & Oncology | PROC: 4A0 Measurement and Monitoring, Physiological Systems, Measurement (ICD-10-PCS; principal; 2024-08-07) | DX: Z45.2 Encounter for adjustment and management of vascular access device (principal); C85.90 Non-Hodgkin lymphoma, unspecified, unspecified site | CPT/HCPCS: 36598 ==